=== PATIENT | female | born 1970 | race Caucasian/White ===

== ENCOUNTER → 2023-05-31 07:46 | Outpatient (REF) | payer BC, SELFPAY | LOC: HWRAD 07:46 | PROVIDERS: ATTENDING PHYSICIAN Nurse Practitioner Adult Health; FAMILY PHYSICIAN Internal Medicine | DX: N83.209 Unspecified ovarian cyst, unspecified side (principal) | CPT/HCPCS: 76830; 76856 ==

== ENCOUNTER → 2023-06-23 13:09 | Outpatient (REF) | payer BC, SELFPAY | LOC: WDC 13:09 | PROVIDERS: ATTENDING PHYSICIAN Nurse Practitioner Adult Health; FAMILY PHYSICIAN Nurse Practitioner | DX: Z12.31 Encounter for screening mammogram for malignant neoplasm of breast (principal) | CPT/HCPCS: 77063; 77067 ==

== ENCOUNTER → 2023-06-29 10:57 | Outpatient (REF) | payer BC, SELFPAY | LOC: PAVMRI 10:57 | PROVIDERS: ATTENDING PHYSICIAN Nurse Practitioner Adult Health; FAMILY PHYSICIAN Internal Medicine | DX: N83.209 Unspecified ovarian cyst, unspecified side (principal) | CPT/HCPCS: 72197; A9575 ==

== ENCOUNTER → 2023-08-31 09:27 | Outpatient (REF) | payer BC, SELFPAY | LOC: RCS 09:27 | PROVIDERS: ATTENDING PHYSICIAN Internal Medicine; FAMILY PHYSICIAN Internal Medicine | DX: I25.10 Atherosclerotic heart disease of native coronary artery without angina pectoris (principal) | CPT/HCPCS: 93005 ==

== ENCOUNTER 2024-11-09 08:26 | Outpatient (RCR) | payer BC, SELFPAY ==
[2024-11-09 08:42] VITALS: BP 113/40
[2024-11-09] MEDS: NSS 250 IV (08:50)
[2024-11-09] MEDS: VENOFER 110 MG IV (08:51)
== END 2024-11-23 23:59 | disposition home or self-care (01) ==
LOC: OID 08:26
PROVIDERS: ATTENDING PHYSICIAN Nurse Practitioner
DX: D50.9 Iron deficiency anemia, unspecified (principal); D51.0 Vitamin B12 deficiency anemia due to intrinsic factor deficiency; E53.8 Deficiency of other specified B group vitamins
CPT/HCPCS: 96365; 96367; J1756